=== PATIENT | male | born 1955 | race African-American/Black ===

== ENCOUNTER 2017-06-19 15:40 | Emergency (ER) | payer MEDICAID ==
[~2017-06-19] VITALS: Ht 167.6 cm; Wt 97.0 kg
[2017-06-19 16:20] LABS: BASOPHILS % 0.9 % (0.0-2.0); EOSINOPHILS % 1.8 % (0.0-5.0); HEMATOCRIT. 39.8 % (42.0-52.0); HEMOGLOBIN. 13.7 g/dL (14.0-18.0); LYMPHOCYTES % 35.4 % (20.0-50.0); MEAN CORPUSCULAR HEMOGLOBIN 31.4 pg (28.0-32.0); MEAN CORPUSCULAR VOLUME 91.4 fL (80.0-94.0); MEAN PLATELET VOLUME 6.6 fl (7.4-10.4); MONOCYTES % 8.1 % (2.0-8.0); NEUTROPHILS % 53.8 % (40.0-76.0); PLATELET 271 x1000/uL (130-400); RED BLOOD CELL COUNT 4.36 mill/uL (4.7-6.1)
[2017-06-19 16:24] LABS: CHLORIDE 109 mEq/L (98-107)
[2017-06-19 16:26] LABS: PROTHROMBIN TIME 10.4 sec (9.4-11.6)
[2017-06-19] MEDS ORDERED: METHYLPREDNISOLONE SOD SUCC 125 MG/2 ML VIAL IV STA (17:27)
[2017-06-19] MEDS ORDERED: ONDANSETRON HCL 4MG/2ML VIAL IV STA (17:27)
[2017-06-19] MEDS ORDERED: KETOROLAC 30MG/ML VIAL IV STA (17:27)
[2017-06-19] MEDS ORDERED: IPRATROPIUM/ALBUTEROL 0.5-3(2.5)MG/3ML NEB HHN ONE (17:30)
[2017-06-19] MEDS ORDERED: FAMOTIDINE 20MG/2ML VIAL IV ONE (17:30)
[2017-06-19] MEDS ORDERED: MAGNESIUM/ALUMINUM HYDROXIDE/SIMETHICONE 30ML UDC PO ONE (17:30)
[2017-06-19] MEDS ORDERED: LEVOFLOXACIN 500MG TABLET PO ONE (17:30)
[2017-06-19 20:05] VITALS: BP 132/88
== END 2017-06-19 20:05 | disposition home or self-care (01) ==
LOC: ER 16:18
DX: J40 Bronchitis, not specified as acute or chronic (principal); K29.70 Gastritis, unspecified, without bleeding; K21.9 Gastro-esophageal reflux disease without esophagitis; J45.909 Unspecified asthma, uncomplicated; I10 Essential (primary) hypertension; E78.00 Pure hypercholesterolemia, unspecified; F17.200 Nicotine dependence, unspecified, uncomplicated
CPT/HCPCS: 36415; 71045; 80053; 83880; 84484; 85025; 85379; 85610; 93005; 94640; 96374; 96375; 99285; J1885; J2405; J2930; J3490; J7620; Z7610

== ENCOUNTER 2018-12-29 21:48 | Emergency (ER) | payer MEDICAID | END 2018-12-29 23:06 | disposition left against medical advice (07) | LOC: ER 21:48 | DX: Z53.21 Procedure and treatment not carried out due to patient leaving prior to being seen by health care provider (principal) ==

== ENCOUNTER 2018-12-30 18:36 | Emergency (ER) | payer MEDICAID ==
[~2018-12-30] VITALS: Ht 165.1 cm; Wt 99.0 kg
[2018-12-30] MEDS ORDERED: KETOROLAC 30MG/ML VIAL IV STA (21:21)
[2018-12-30] MEDS ORDERED: ASPIRIN 81MG TABLET PO ONE (21:30)
[2018-12-30 21:40] LABS: BASOPHILS % 0.7 % (0.0-2.0); EOSINOPHILS % 1.6 % (0.0-5.0); HEMATOCRIT. 39.1 % (42.0-52.0); HEMOGLOBIN. 13.3 g/dL (14.0-18.0); LYMPHOCYTES % 40.6 % (20.0-50.0); MEAN CORPUSCULAR HEMOGLOBIN 31.8 pg (28.0-32.0); MEAN CORPUSCULAR VOLUME 93.2 fL (80.0-94.0); MEAN PLATELET VOLUME 6.8 fl (7.4-10.4); MONOCYTES % 9.4 % (2.0-8.0); NEUTROPHILS % 47.7 % (40.0-76.0); PLATELET 266 x1000/uL (130-400); RED BLOOD CELL COUNT 4.19 mill/uL (4.7-6.1); RED CELL DISTRIBUTION WIDTH 14.2 % (11.6-14.6)
[2018-12-30 21:42] LABS: CHLORIDE 111 mEq/L (98-107)
[2018-12-31 01:30] VITALS: BP 131/77
== END 2018-12-31 02:01 | disposition home or self-care (01) ==
LOC: ER 18:36
DX: R07.9 Chest pain, unspecified (principal); S46.911A Strain of unspecified muscle, fascia and tendon at shoulder and upper arm level, right arm, initial encounter; S09.8XXA Other specified injuries of head, initial encounter; J45.909 Unspecified asthma, uncomplicated; I10 Essential (primary) hypertension; E78.00 Pure hypercholesterolemia, unspecified; Y04.0XXA Assault by unarmed brawl or fight, initial encounter; Y93.89 Activity, other specified; Y92.9 Unspecified place or not applicable
CPT/HCPCS: 36415; 70486; 71045; 73030; 80053; 83880; 84484; 85025; 93005; 96374; 99284; J1885; Z7610; A4565

== ENCOUNTER 2019-12-14 12:54 | Emergency (ER) | payer MEDICARE, MEDICAID ==
[~2019-12-14] VITALS: Ht 172.7 cm; Wt 100.0 kg
[2019-12-14] MEDS ORDERED: IPRATROPIUM BROMIDE (0.02%) 0.5MG/2.5ML NEB HHN STA ×2 (14:35)
[2019-12-14] MEDS ORDERED: PREDNISONE 20MG TABLET PO STA ×2 (14:35)
[2019-12-14] MEDS ORDERED: ALBUTEROL (0.083%) 2.5MG/3ML NEB HHN STA ×2 (14:35)
[2019-12-14 16:48] LABS: BASOPHILS % 0.8 % (0.0-2.0); EOSINOPHILS % 3.3 % (0.0-5.0); HEMATOCRIT. 41.8 % (42.0-52.0); LYMPHOCYTES % 43.5 % (20.0-50.0); MEAN CORPUSCULAR HEMOGLOBIN 31.4 pg (28.0-32.0); MEAN CORPUSCULAR VOLUME 93.7 fL (80.0-94.0); MONOCYTES % 11.3 % (2.0-8.0); NEUTROPHILS % 41.1 % (40.0-76.0); PLATELET 233 x1000/uL (130-400); RED BLOOD CELL COUNT 4.46 mill/uL (4.7-6.1); RED CELL DISTRIBUTION WIDTH 14.2 % (11.6-14.6)
[2019-12-14 16:58] LABS: CHLORIDE 105 mEq/L (98-107)
[2019-12-14 17:30] VITALS: BP 135/85
== END 2019-12-14 17:30 | disposition home or self-care (01) ==
LOC: ER 12:54
DX: J45.901 Unspecified asthma with (acute) exacerbation (principal); Z03.818 Encounter for observation for suspected exposure to other biological agents ruled out; I10 Essential (primary) hypertension; F17.210 Nicotine dependence, cigarettes, uncomplicated
CPT/HCPCS: 36415; 71045; 80053; 83880; 84484; 85025; 87635; 93005; 94640; 99285; J7512; Z7610

== ENCOUNTER 2022-06-28 14:56 | Emergency (ER) | payer MEDICARE, OTHER ==
[~2022-06-28] VITALS: Ht 175.3 cm; Wt 94.0 kg
[2022-06-28] MEDS ORDERED: IBUP-2029 MT (15:36)
[2022-06-28] MEDS ORDERED: METH-653 MT (15:36)
[2022-06-28] MEDS ORDERED: KETOROLAC 30MG/ML VIAL IM ONE (15:45)
[2022-06-28] MEDS ORDERED: METHOCARBAMOL 500MG TABLET PO ONE (15:45)
[2022-06-28 16:02] VITALS: BP 175/91
== END 2022-06-28 16:11 | disposition home or self-care (01) ==
LOC: ER 14:56
DX: S39.012A Strain of muscle, fascia and tendon of lower back, initial encounter (principal); V49.49XA Driver injured in collision with other motor vehicles in traffic accident, initial encounter; Y93.89 Activity, other specified; Y92.89 Other specified places as the place of occurrence of the external cause; Y99.8 Other external cause status; I95.9 Hypotension, unspecified
CPT/HCPCS: 96372; 99283; J1885